=== PATIENT | female | born 1960 | race Caucasian/White ===

== ENCOUNTER 2020-09-26 13:59 | Emergency (ER) | payer SELFPAY ==
[~2020-09-26] VITALS: Ht 154.9 cm; Wt 67.0 kg
[2020-09-26] MEDS ORDERED: TETANUS, DIPHTHERIA, PERTUSSIS VAC/PF 0.5ML (>7YR OLD) IM ONE (14:45)
[2020-09-26 15:56] VITALS: BP 120/78
[2020-09-26 16:31] LABS: HEPATITIS B SURFACE ANTIGEN NEGATIVE
== END 2020-09-26 15:56 | disposition home or self-care (01) ==
LOC: ER 15:42
DX: S61.236A Puncture wound without foreign body of right little finger without damage to nail, initial encounter (principal); W26.8XXA Contact with other sharp object(s), not elsewhere classified, initial encounter; Y93.H3 Activity, building and construction; Y92.59 Other trade areas as the place of occurrence of the external cause
CPT/HCPCS: 36415; 90471; 90715; 99283